=== PATIENT | female | born 1945 | race Caucasian/White ===

== ENCOUNTER 2020-10-21 06:22 | Observation (INO) ==
[~2020-10-21 06:22] MED LIST: Buffered Lidocaine 1% SYRIN 1 ml INTRADERM ONE; Lactated Ringers 1000 ml BAG 1,000 ML IV SCH
[2020-10-21] MEDS ORDERED: Propofol 10 MG/ML 20 ML BTL ONE ×2 (06:52→10:10)
[2020-10-21] MEDS ORDERED: Ketamine HCL 50 mg/ml 10 ml VIAL (500 MG) ONE (06:52)
[2020-10-21] MEDS ORDERED: Midazolam 2 mg/2 ml VIAL 1 mg/ml 2 ml VIAL (2 mg) ONE ×2 (06:52→07:51)
[2020-10-21] MEDS ORDERED: Glycopyrrolate IV 0.2 MG/ML 1 ML VIAL ONE (06:52)
[2020-10-21] MEDS ORDERED: Ropivacaine 5 MG/ML 20 ML VIAL 0.5% (100 MG) ONE (07:29)
[2020-10-21] MEDS ORDERED: ROPIVACAINE 5 MG/ML 30 ML BTL (0.5%) ONE (07:35)
[2020-10-21] MEDS ORDERED: Lidocaine 1% MPF 5 ML VIAL ONE (07:35)
[2020-10-21 07:46] LABS: INR 1.05 (0.86-1.15)
[2020-10-21] MEDS ORDERED: HYDROmorphone 1 MG/1 ML SYRINGE IV PRN (08:10)
[2020-10-21] MEDS ORDERED: Naloxone 0.4 mg VIAL 0.4 mg/ml 1 ml VIAL IV PRN (08:10)
[2020-10-21] MEDS ORDERED: DiMENhydriNATE IV 50 mg/ml 1 ml VIAL IV PUSH PRN (08:10)
[2020-10-21] MEDS ORDERED: Ondansetron 4 mg VIAL 2 MG/ML 2 ml VIAL ONE (08:40)
[2020-10-21] MEDS ORDERED: Phenylephrine IV 10 MG/ML 1 ml VIAL ONE (09:04)
[2020-10-21] MEDS ORDERED: Acetaminophen IV 1 GM/100ML 100 ML IV ONE ×2 (10:08→12:02)
[2020-10-21] MEDS ORDERED: Magnesium Hydroxide LIQ 30 ML UDC PO PRN (10:44)
[2020-10-21] MEDS ORDERED: Ondansetron 4 mg VIAL 2 MG/ML 2 ml VIAL IV PRN (10:44)
[2020-10-21] MEDS ORDERED: diPHENhydraMINE 25 mg TAB PO PRN (10:44)
[2020-10-21] MEDS ORDERED: Lactulose 30 ml UDC PO PRN (10:44)
[2020-10-21] MEDS ORDERED: Morphine 2 MG/ML SYRINGE IV PRN (10:44)
[2020-10-21] MEDS ORDERED: diPHENhydraMINE IV 50 MG/ML 1 ml VIAL (BENADRYL) IV PRN (10:44)
[2020-10-21] MEDS ORDERED: Ondansetron ODT 4 mg TAB 4 MG TAB PO PRN (10:44)
[2020-10-21] MEDS: Lactated Ringers 1000 ml BAG 1,000 ML IV SCH (13:00)
[2020-10-21] MEDS: ceFAZolin 1 GM ADVAN 1 GM in NS 0.9% 50 ML 50 ML IVPB SCH ×2 (16:23→23:18)
[2020-10-21] MEDS: Magnesium Hydroxide LIQ 30 ML UDC PO SCH (21:45)
[2020-10-22] MEDS: Lactated Ringers 1000 ml BAG 1,000 ML IV SCH (02:58)
[2020-10-22] MEDS: oxyCODONE/Acetamin 5/325 mg TAB PO PRN ×3 (03:02→11:38)
[2020-10-22 06:27] LABS: Hematocrit 34 % (35-47); Hemoglobin 11.8 g/dL (12.0-16.0); Platelet Count 153 10^3/uL (150-450)
[2020-10-22 06:37] LABS: Calcium 8.9 mg/dL (8.6-10.3); EGFR African American 74.4 (>60); EGFR Non-African American 61.5 (>60); Potassium 3.9 mmol/L (3.5-5.0)
[2020-10-22] MEDS: ceFAZolin 1 GM ADVAN 1 GM in NS 0.9% 50 ML 50 ML IVPB SCH (07:21)
[2020-10-22] MEDS: Magnesium Hydroxide LIQ 30 ML UDC PO SCH (07:26)
[2020-10-22] MEDS ORDERED: Vitamin THERAPEUTIC TAB PO SCH (09:00)
[2020-10-22 11:33] VITALS: BP 141/77
== END 2020-10-22 15:55 | disposition home or self-care (01) ==
LOC: INTOOBSV 06:22 → AA 06:22 → SSU 10:44
PROVIDERS: ADMIT Orthopaedic Surgery Adult Reconstructive Orthopaedic Surgery; ATTEND Orthopaedic Surgery Adult Reconstructive Orthopaedic Surgery

== ENCOUNTER 2021-12-01 05:38 | Observation (INO) ==
[2021-12-01] MEDS ORDERED: Buffered Lidocaine 1% SYRIN 1 ml INTRADERM ONE (06:00)
[2021-12-01] MEDS ORDERED: Lactated Ringers 1000 ml BAG 1,000 ML IV SCH (06:00)
[2021-12-01] MEDS ORDERED: ceFAZolin 2 GM in NS PREMIX 2 GM/100 ML BAG IVPB ONE (06:10)
[2021-12-01] MEDS ORDERED: fentaNYL 100 mcg/2 ml 50 MCG/ML VIAL ONE ×2 (07:09→10:18)
[2021-12-01] MEDS ORDERED: Midazolam 2 mg/2 ml VIAL 1 mg/ml 2 ml VIAL (2 mg) ONE (07:09)
[2021-12-01] MEDS ORDERED: Lidocaine 2% PF 5 ML VIAL ONE (07:19)
[2021-12-01] MEDS ORDERED: Phenylephrine IV 10 MG/ML 1 ml VIAL ONE (07:19)
[2021-12-01] MEDS ORDERED: Naloxone 0.4 mg VIAL 0.4 mg/ml 1 ml VIAL IV PRN (07:58)
[2021-12-01] MEDS ORDERED: Ondansetron 4 mg VIAL 2 MG/ML 2 ml VIAL IV PRN ×2 (07:58→09:58)
[2021-12-01] MEDS ORDERED: Dexamethasone IV 4 MG/ML VIAL 1 ml VIAL ONE (08:09)
[2021-12-01] MEDS ORDERED: Ondansetron 4 mg VIAL 2 MG/ML 2 ml VIAL ONE (08:09)
[2021-12-01] MEDS ORDERED: Glycopyrrolate IV 0.2 MG/ML 1 ML VIAL ONE (08:10)
[2021-12-01] MEDS ORDERED: Magnesium Hydroxide LIQ 30 ML UDC PO PRN (09:58)
[2021-12-01] MEDS ORDERED: Lactulose 30 ml UDC PO PRN (09:58)
[2021-12-01] MEDS ORDERED: Ondansetron ODT 4 mg TAB 4 MG TAB PO PRN (09:58)
[2021-12-01] MEDS ORDERED: Morphine 2 MG/ML SYRINGE IV PRN (09:58)
[2021-12-01] MEDS: fentaNYL 100 mcg/2 ml 50 MCG/ML VIAL IV PRN ×2 (10:20→10:34)
[2021-12-01] MEDS: Lactated Ringers 1000 ml BAG 1,000 ML IV SCH ×2 (11:37→23:38)
[2021-12-01] MEDS: ceFAZolin 1 GM ADVAN 1 GM in NS 0.9% 50 ML 50 ML IVPB SCH ×2 (15:21→23:39)
[2021-12-01] MEDS: Magic MouthWash1-BEN/MAAL/LIDO 180 ML BTL SWISH SPIT SCH (21:29)
[2021-12-01] MEDS: Magnesium Hydroxide LIQ 30 ML UDC PO SCH (21:30)
[2021-12-02 06:08] LABS: Hematocrit 32 % (35-47); Hemoglobin 10.9 g/dL (12.0-16.0); Mean Platelet Volume 8.3 fL (7.4-10.4); Platelet Count 157 10^3/uL (150-450)
[2021-12-02 07:04] LABS: Calcium 9.2 mg/dL (8.6-10.3); Potassium 4.4 mmol/L (3.5-5.0); eGFR CKD-EPI 70.1 (>60)
[2021-12-02] MEDS: ceFAZolin 1 GM ADVAN 1 GM in NS 0.9% 50 ML 50 ML IVPB SCH (07:29)
[2021-12-02] MEDS: Vitamin THERAPEUTIC TAB PO SCH (07:31)
[2021-12-02] MEDS: Magnesium Hydroxide LIQ 30 ML UDC PO SCH ×2 (07:31→21:13)
[2021-12-02] MEDS: Magic MouthWash1-BEN/MAAL/LIDO 180 ML BTL SWISH SPIT SCH ×4 (07:32→21:13)
[2021-12-03 06:23] LABS: Hematocrit 27 % (35-47); Hemoglobin 9.4 g/dL (12.0-16.0); Mean Platelet Volume 8.7 fL (7.4-10.4); Platelet Count 130 10^3/uL (150-450)
[2021-12-03] MEDS: Magnesium Hydroxide LIQ 30 ML UDC PO SCH (08:13)
[2021-12-03] MEDS: Vitamin THERAPEUTIC TAB PO SCH (08:13)
[2021-12-03] MEDS: Magic MouthWash1-BEN/MAAL/LIDO 180 ML BTL SWISH SPIT SCH (08:20)
[2021-12-03 11:01] VITALS: BP 118/74
== END 2021-12-03 13:47 | disposition home or self-care (01) ==
LOC: AA 05:38 → INTOOBSV 05:38 → SSU 09:58
PROVIDERS: ADMIT Orthopaedic Surgery Adult Reconstructive Orthopaedic Surgery; ATTEND Orthopaedic Surgery Adult Reconstructive Orthopaedic Surgery